=== PATIENT | male | born 1960 | race Caucasian/White ===

== ENCOUNTER 2018-04-26 23:30 | Emergency (ER) | payer BC ==
[~2018-04-26] VITALS: Ht 170.2 cm; Wt 86.2 kg
[~2018-04-26 23:30] MED LIST: LAMISIL AT12 G1 TOPICAL; SPORANOX100 MG PO
[2018-04-26 23:34] VITALS: Ht 170.2 cm; Wt 86.2 kg
[2018-04-26] MEDS ORDERED: SLEEPING MEDICATION (23:35)
[2018-04-27 00:09] VITALS: BP 128/86
== END 2018-04-27 00:13 | disposition home or self-care (01) ==
LOC: D.ER 23:30
DX: B35.6 Tinea cruris (principal)